=== PATIENT | male | born 1960 | race Caucasian/White ===

== ENCOUNTER 2021-06-07 11:50 | Emergency (ER) | payer OTHER ==
[~2021-06-07] VITALS: Ht 177.8 cm; Wt 100.0 kg
[2021-06-07 12:02] VITALS: BP 131/88
[2021-06-07] MEDS ORDERED: acetaminophen 325mg tablet PO ONE (12:45)
[2021-06-07] MEDS ORDERED: ALBU6.7H9 INH (13:19)
--- NOTE | 2021-06-07 13:38 | NUR ---
PATIENT SEEN ON THE AMBULANCE BAY AND TREATED PER PROVIDER.
== END 2021-06-07 13:37 | disposition home or self-care (01) ==
LOC: ER 11:51
DX: U07.1 COVID-19 (principal); R07.89 Other chest pain; R51.9 Headache, unspecified; R53.81 Other malaise; R50.9 Fever, unspecified; R05 Cough; I10 Essential (primary) hypertension; Z72.89 Other problems related to lifestyle; Z79.899 Other long term (current) drug therapy
CPT/HCPCS: 71045; 93005; 99283